=== PATIENT | female | born 1955 | race Caucasian/White ===

== ENCOUNTER 2025-05-18 16:04 | Emergency (ER) | payer OTHER, SELFPAY ==
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
[2025-05-18 16:20] VITALS: BP 122/59; PULSE 75; RESP 16; TEMP 36.1; O2SAT 99
== END 2025-05-18 16:32 | disposition home or self-care (01) ==
PROVIDERS: Emergency Provider Nurse Practitioner Family; PCP Internal Medicine
DX: S61.250A Open bite of right index finger without damage to nail, initial encounter (principal); W50.3XXA Accidental bite by another person, initial encounter; Y99.0 Civilian activity done for income or pay
CPT/HCPCS: 99203; G0463